=== PATIENT | female | born 1935 | race Caucasian/White ===

== ENCOUNTER → 2017-12-04 09:39 | Outpatient (CLI) | payer MEDICARE, OTHER, SELFPAY ==
--- NOTE | 2017-12-04 09:41 | ECHOD_ITS ---
Reason For Study: Dyspnea/SOB Procedure This was a 2D Doppler, Color Flow transthoracic echocardiogram. Exam performed in department. Left Ventricle Mildly dilated left ventricle. The estimated ejection fraction is 65 %. No regional wall motion abnormalities noted. Right Ventricle Mildly dilated right ventricle. Normal systolic function. Atria Normal left atrium. Normal right atrium. Normal atrial septum. Mitral Valve The mitral valve is structurally normal. No prolapse or stenosis seen. Trivial mitral valve insufficiency. Tricuspid Valve Normal tricuspid valve. Mild (1+) tricuspid valve insufficiency. Right ventricular systolic pressure estimated to be 38 mmHg. Mild pulmonary hypertension. Aortic Valve Trisinus/trileaflet aortic valve. Mild-Moderate (1-2+) aortic valve insufficiency. Pulmonic Valve Normal pulmonic valve. Great Vessels Normal aortic root. Normal arch. Normal inferior vena cava. Inferior vena cava collapse with sniff. Pericardium/Pleural No pericardial effusion. Medication Performed a rapid injection of agitated mix of 9 cc saline and 1cc air to assess for atrial septal defect. MMode/2D Measurements & Calculations LVIDd: 4.8 cm IVSd: 1.0 cm Ao root diam: 3.1 cm LVIDs: 3.0 cm LVPWd: 0.97 cm LA dimension: 3.3 cm RVDd: 4.1 cm FS: 38.3 % LAV(MOD-bp): 34.6 ml EDV(MOD-sp4): 68.2 ml SV(MOD-sp4): 49.2 ml LAV(MOD-bp) Indexed: 23.0 ml/m2 ESV(MOD-sp4): 18.9 ml LAV(MOD-sp2): 45.0 ml EF(MOD-sp4): 72.2 % LAV(MOD-sp4): 26.5 ml LA A4 area: 13.0 cm2 RA A4 area: 18.6 cm2 Doppler Measurements & Calculations MV E max jaquan: 68.8 cm/sec Lat Peak E' Jaquan: 6.3 cm/sec Med Peak E' Jaquan: 4.2 cm/sec MV A max jaquan: 78.6 cm/sec E/E' lat: 10.9 E/E' med: 16.4 MV E/A: 0.88 Ao V2 max: 166.7 cm/sec AI max jaquan: 432.7 cm/sec LV V1 max: 113.2 cm/sec Ao max P.1 mmHg AI max P.9 mmHg LV V1 max P.1 mmHg Ao V2 mean: 117.3 cm/sec AI dec slope: 189.6 cm/sec2 Ao mean P.1 mmHg AI P1/2t: 668.5 msec Ao V2 VTI: 43.0 cm PA V2 max: 92.4 cm/sec TR max jaquan: 272.7 cm/sec TR max P.8 mmHg Interpretation Summary The estimated ejection fraction is 65 %. Mildly dilated left ventricle. Trivial mitral valve insufficiency. Mild (1+) tricuspid valve insufficiency. Right ventricular systolic pressure estimated to be 38 mmHg. Mild pulmonary hypertension. Mildly dilated right ventricle. Mild-Moderate (1-2+) aortic valve insufficiency. There is no comparison study available. Ordering Physician: Luis Antonio Gunter Referring Physician: Henry Angelo Performed By: Fatimah Hamilton, IVONE, RVT
== END ==
PROVIDERS: Family Provider Family Medicine; PCP Family Medicine; Visit Provider Internal Medicine Cardiovascular Disease
DX: R07.89 Other chest pain (principal); R06.00 Dyspnea, unspecified; R06.02 Shortness of breath
CPT/HCPCS: 93306; A4216

== ENCOUNTER → 2017-12-12 13:18 | Outpatient (CLI) | payer MEDICARE, OTHER, SELFPAY ==
--- NOTE | 2017-12-12 13:20 | STE_ITS ---
Reason For Study: DYSPNEA/SOB Stress Results Protocol: Stress Echocardiogram Maximum Predicted HR: 138 bpm Target HR: 117 bpm% Maximum Pr edicted HR: 77 % DurationHeart Rate Stage (mm:ss) (bpm) BPCom ment BASELINE 65 140/70 SHAHEEN PROTOCOL- STAGE 1 3:00 90 138/68PO 98% SHAHEEN PROTOCOL- STAGE 2 2:33 10 6 140/70SOB, LEG FATIGUE PO 82% RECOVERY 71 134/78 97% Stress Duration: 5:33 mm:ss Maximum Stress HR: 106 bpm Baseline Echocardiogram Findings The estimated ejection fraction is 65 %. Stress Echo Wall motion Data Resting WMIntermediate WMStress WM Resting Wall Motion Wall Motion Stress No regional wall motion No regional wall motion abnormalities noted. abnormalities noted. EKG Data The baseline ECG demonstrates normal sinus rhythm with at rate of _ beats per minute. The patient exercised according to the regular Shaheen protocol for a total duration of 5:33. The maximum heart rate attained was 106 beats per minute. This was 76% of maximum predicted heart rate. The patient exercised into stage 2 of the Shaheen protocol. During stress, there were no ST or T wave changes noted to suggest ischemia. No clinical angina was noted. Interpretation Summary The estimated ejection fraction is 65 %. Normal submaximal treadmill echocardiogram. Negative for ischemia by EKG and echocardiographic criteria. No anginal symptoms noted. Average exercise capacity for age. Rare PACs and PVCs noted. Decreased sensitivity due to failure to reach target heart rate. Test terminated due to dyspnea and leg fatigue. Final LVEF of 75%. No complications. Ordering Physician: Luis Antonio Gunter Referring Physician: Luis Antonio Gunter Performed By: Adelita Person, RDCS, RVT
== END ==
PROVIDERS: Family Provider Family Medicine; PCP Family Medicine; Visit Provider Internal Medicine Cardiovascular Disease
DX: R07.89 Other chest pain (principal); R06.09 Other forms of dyspnea; I10 Essential (primary) hypertension; E78.5 Hyperlipidemia, unspecified
CPT/HCPCS: 93017; 93350

== ENCOUNTER → 2017-12-19 12:20 | Outpatient (CLI) | payer MEDICARE, OTHER, SELFPAY ==
--- NOTE | 2017-12-19 12:30 | RAD_ITS ---
STUDY: X-RAY CHEST REASON FOR EXAM: Female, 81 years old. Dyspnea, chest tightness. TECHNIQUE: PA and lateral views of the chest. COMPARISON: None. FINDINGS: The lungs are clear and expanded. There is no demonstrated pleural abnormality. The heart size is upper normal. Normal mediastinum and dary. Normal visualized pulmonary arteries. There is mild atherosclerotic calcification of the aortic arch and descending thoracic aorta. There are multilevel degenerative changes of the visualized spine, as well as an upper lumbar levoscoliosis. Normal visualized ribs, clavicles, and shoulders. Surgical clips of prior cholecystectomy project in the right upper quadrant of the abdomen. RAD/Chest PA and Lateral IMPRESSION: No acute cardiopulmonary disease. Electronically Signed: Rolo Grossman MD at 13:13 EDT , Service support ,
[2017-12-19 13:10] LABS: Absolute Lymphocyte Count 2.23 X10^3/ul (0.83-4.51); Basophil# 0.05 X10^3/uL; Basophil% 0.6 % (0-1); Eosinophils% 2.5 % (0-5); Hematocrit 43.1 % (37-47); Lymphocyte # 2.23 X10^3/ul (4.0); Lymphocyte % 27.3 % (19-41); Mean Corp Hgb Conc 32.5 g/gl (32-36); Mean Corpuscular Hgb 29.5 pg (27.0-32.0); Mean Corpuscular Volume 90.7 fL (81-99); Mean Platelet Vol. 11.3 fl (6.2-12.0); Monocyte# 0.62 X10^3/uL; Monocyte% 7.6 % (0-10); Neutrophil # 5.04 X10^3/uL (2.7-7.7); Neutrophil % 61.8 % (47-70); Platelet Count 239 K/mm3 (150-450); RBC Distribution Width CV 13.5 % (11.6-14.6); RBC Distribution Width SD 44.3 fl (35.1-43.9); Red Blood Count 4.75 M/mm3 (4.2-5.4); White Blood Count 8.2 K/mm3 (4.4-11.0)
[2017-12-19 13:11] LABS: POSITIVE COUNT NO; POSITIVE DIFFERENTIAL NO; POSITIVE MORPHOLOGY NO
[2017-12-19 13:18] LABS: Partial Thromboplast Time 25.4 Seconds (24.1-36.2); Prothrombin Time (Protime)PT. 13.2 SECONDS (11.7-14.9)
[2017-12-19 13:46] LABS: Anion Gap 11 (5-15); BUN 30 mg/dL (7-18); BUN/Creat Ratio 26.5 RATIO (10-20); Calcium,Total 9.7 mg/dL (8.5-10.1); Chloride 104 mmol/L (98-107); Creatinine, Serum 1.13 mg/dL (0.55-1.02); EST Glomerular Filtration Rate 49 mL/min (>60); Est Glom Filt Rate - Afr Amer 59 mL/min (>60); Glucose 97 mg/dL (74-106); Potassium 3.8 mmol/L (3.5-5.1); Sodium Level 142 mmol/L (136-145)
[2017-12-29 20:06] LABS: Base Excess 0 mmol/L (-2 to +2); Bicarbonate 24.4 mmol/L (22-26); Blood Gas Specimen Type ART; PO2 81 mmHG (75-100); SO2 96 % (95-99); Total Carbon Dioxide 26 mmol/L
[2017-12-29 20:10] LABS: Blood Gas Specimen Type VEN; VBG BASE EXCESS 3 mmol/L (-1.0-3.5); VBG Bicarbonate 27 mmol/L (22-26); VBG Oxygen Content 28 mmol/L (23-33); VBG PO2 39 mmHg (25-40); VBG SO2 74 % (50-70); VBG pH 7.43 (7.32-7.42)
[2017-12-29 20:10] LABS: Blood Gas Specimen Type VEN; VBG BASE EXCESS 1 mmol/L (-1.0-3.5); VBG Bicarbonate 25 mmol/L (22-26); VBG Oxygen Content 26 mmol/L (23-33); VBG PO2 40 mmHg (25-40); VBG SO2 75 % (50-70); VBG pCO2 39.8 mmHg (41-51); VBG pH 7.41 (7.32-7.42)
== END ==
PROVIDERS: Family Provider Family Medicine; PCP Family Medicine; Visit Provider Internal Medicine Cardiovascular Disease
DX: I27.21 Secondary pulmonary arterial hypertension (principal); I35.1 Nonrheumatic aortic (valve) insufficiency; I49.3 Ventricular premature depolarization; E03.9 Hypothyroidism, unspecified; R07.89 Other chest pain; I10 Essential (primary) hypertension; E78.5 Hyperlipidemia, unspecified; R06.09 Other forms of dyspnea; R94.39 Abnormal result of other cardiovascular function study
CPT/HCPCS: 36415; 71046; 80048; 82803; 85025; 85610; 85730

== ENCOUNTER → 2017-12-25 06:48 | Day surgery (SDC) | payer MEDICARE, OTHER, SELFPAY ==
--- NOTE | 2017-12-25 06:48 | DT_ITS ---
This patient was seen during an EMR downtime December 23, 2017 - December 30, 2017. This patient may have a combination of paper and electronic documentation or all paper documentation. All documentation is viewable within the e-chart portion of [facility] for each patient visit.
--- NOTE | 2017-12-31 12:50 | CL.D_ITS ---
Patient Name: LIZZ DE LA CRUZ Study Date: 12/25/2017 Performing: Luis Antonio Gunter MD Ht: 60 inches 152.4 cm : 1935 Wt: 121 lbs 54.885 kg Age: 81 Gender: female BSA: 1.51 PROCEDURE(S) PERFORMED [id number]/LHC/COR/LV [id number]-AO ROOT ANGIO WITH HEART CATH CLINICAL PROFILE AND INDICATIONS Indications: dyspnea on exertion Heart Failure: None Stress/Imaging Stress Echocardiogram: Yes Result: IndeterminantStress Echocardiogram: Indetermina nt Angina Classification Anginal Classification w/in 2 Weeks: No symptoms CAD Presentations: Other: dyspnea on exertion Comorbidities/Risk Factors: Hypertension Dyslipidemia CONCLUSIONS Perserved Left Ventricular systolic function with normal EDP Non obstructive coronary arteries with 60% moderately calcified mid LAD stenosis. May need rotoblati on if PFTS and renal ultrasound are unremarkable. Cardiac output - Preserved Aortic Valve Insufficiency Mild Right heart pressures - Normal RECOMMENDATIONS Renal u/s, PFTs. D/c plavix, cont baby asa. Risk factor modification ASA Indefinitely Management as per referring Whip Operator Possible need for PTCRA if pulmonary and renal w/u is unremarkable. Does not appear to require AVR a t this time. DESCRIPTION OF PROCEDURE The patient arrived to the procedure lab. The risks and benefits of the procedure as well as a full d escription of our services here and current unavailability of surgical backup were fully explained to the patient and/or their significant other prior to the catheterization. The Timeout was completed, verifying the correct patient and procedure. The patient's procedural site was prepped and draped in the usual fashion. Local anesthetic was given subcutaneously to right groin region with Lidocaine 2%. Using a modified Seldinger technique, arterial access was obtained via the right femoral artery, a 4 Fr sheath was inserted Venous access was obtained via the right femoral vein, a 7Fr sheath was insert ed. A 7Fr thermal dilution catheter was inserted and right heart pressures were recorded, it was then advanced to PA position for cardiac outputs. Thermal dilution cardiac outputs were then recorded. O2 saturations were then obtained. Simultaneous pressures were then recorded. Left Ventriculography was performed in METZ projection using a 4 Fr. Pigtail catheter. LV to AO pullback pressures were then re corded. The Thermal dilution catheter was then removed. Ascending (root) aorta selective angiography was then performed in single view. Ascending (root) aorta selective angiography was then performed in single view. Left Coronary Artery selective angiography was performed in multiple views using a 4 Fr . JL5 catheter. Right Coronary Artery selective angiography was then performed in multiple views usin g a 4 Fr. 3DRC catheter.The arterial sheath was left in to be pulled in the holding area CORONARY ANGIOGRAPHY DOMINANCE: Right Dominant LEFT HEART ASSESSMENT Left Ventricular Ejection Fraction: by LV Gram 65 % Normal LV wall motion RIGHT HEART ASSESSMENT Thermal CO: 3.56 Thermal CI: 2.36 PW: 9 PA: 30/4 16 RV: 34/0 5 RA: 12/21 1 PVR: 157 SVR: 1888 Aortic Valve Area: >3.50 Aortic Valve Index: 2.32 Aortic Valve Mean Gradient: 8.8 Right Heart pressures - normal LEFT MAIN: No significant disease noted LEFT ANTERIOR DECENDING ARTERY: PROX LAD: Moderate to severe calcification with <30% stentosis. MID LAD: 60 % Stenosis, Moderate calcification within 60% stenosis with mild tortuosity. CIRCUMFLEX ARTERY: Mild luminal irregularities less than 30% RIGHT CORONARY ARTERY: Mild luminal irregularities less than 30% RT PDA: Proximal - No significant disease noted VALVE FINDINGS: Aortic Valve Insufficiency: Grade 1 AORTIC ROOT: Atherosclerotic Calcified COMPLICATIONS No Complications PROCEDURE MEDICATIONS Oxygen: 2 L/min via nasal cannula Oxygen: 0 L/min via nasal cannula Benadryl 50 mg IV @ 12/25/2017 07:57:15 Solu-medrol 125 mg IV 12/25/2017 07:57:25 SUMMARY OF HEMODYNAMIC DATA Time AIR REST ECG 07:45:09 RA 12/21 (1) SV 08:29:42 RV 34/0, 5 08:29:59 PA 30/4 (16) PA 08:30:47 PW (9) PV 08:30:59 PW (9) 08:31:09 LV 138/-15, 11 08:35:52 LV 135/-14, 11 08:36:01 LV 135/-15, 10 08:36:33 PW (9) 08:36:33 LV 127/-10, 8 08:36:54 RV 35/0, 7 08:36:54 LV 134/-13, 9 08:37:00 RV 31/0, 5 08:37:00 LVp 143/-15, 14 08:38:43 AOp 143/54 (87) 08:38:48 AO 113/60 (85) SA 08:40:47 Valve Area (c P-P/ms Time AIR REST Aortic 3.50 8.8 mn/107 ms 08:38:43 Type SV CO (l/m) CI (l/m/ HR Time AIR REST Thermal 56.50 3.56 2.36 63 07:45:09 Label % O2 Pres/Loc Time AIR REST AO 96 PV 08:43:53 PA 75 PA 08:44:03 Signed By Luis Antonio Gunter MD On 12/25/2017 09:03:46 Luis Antonio Gunter MD
== END ==
PROVIDERS: Family Provider Family Medicine; PCP Family Medicine; Visit Provider Internal Medicine Cardiovascular Disease
DX: R94.39 Abnormal result of other cardiovascular function study (principal); I10 Essential (primary) hypertension; Z87.891 Personal history of nicotine dependence; M19.019 Primary osteoarthritis, unspecified shoulder; Z79.899 Other long term (current) drug therapy; Z79.82 Long term (current) use of aspirin; Z79.02 Long term (current) use of antithrombotics/antiplatelets; R06.09 Other forms of dyspnea; I27.21 Secondary pulmonary arterial hypertension; I35.1 Nonrheumatic aortic (valve) insufficiency
CPT/HCPCS: 93460; 93567; J7040; C1751; C1769; C1894; Q9967

== ENCOUNTER → 2018-01-14 13:22 | Outpatient (CLI) | payer MEDICARE, OTHER, SELFPAY ==
--- NOTE | 2018-01-15 05:59 | PFTCOMP_ITS ---
COMPLETE PULMONARY FUNCTION TEST INTERPRETATION Brief HPI: Patient is a 82 year old female, currently under the care of Dr. Gunter, who presents to [facility] for complete pulmonary function tests secondary to diagnosis of dyspnea on exertion. Respiratory therapist reports good effort and reproducible results. Interpretation: Forced expiration spirometry shows a mild large airways obstructive ventilatory defect with an FEV1 of 109% predicted. There is no significant bronchodilator response by ATS criteria. Spirograms are of good quality and plateau slowly, indicating slowly emptying areas of the lungs. The respiratory flow volume loop shows decreased expiratory flow rates at all lung volumes consistent with airway obstruction. Lung volumes by body plethysmography show a normal total lung capacity at 4.18 L , 107% predicted. All other lung volumes are within normal limits. Diffusion capacity by carbon monoxide is normal at 85% predicted. The airway resistance is elevated. No previous pulmonary function tests were available for review. Impression: Irreversible mild large airways obstructive ventilatory defect with preserved diffusion capacity consistent with the diagnosis of chronic bronchitis.
== END ==
PROVIDERS: Family Provider Family Medicine; PCP Family Medicine; Visit Provider Internal Medicine Cardiovascular Disease
DX: R06.09 Other forms of dyspnea (principal); I27.21 Secondary pulmonary arterial hypertension
CPT/HCPCS: 94060; 94726; 94729

== ENCOUNTER → 2018-01-16 08:51 | Outpatient (CLI) | payer MEDICARE, OTHER, SELFPAY ==
--- NOTE | 2018-01-16 08:52 | RDU_ITS ---
Reason For Study: uncontrolled HTN Right Renal Artery Left Renal Artery Right renal artery ostium 150/28.1 Left renal artery ostium 114.9/22.0 RSV/EDV. PSV/EDV. Right renal artery proximal Left renal artery proximal PSV/EDV 156/28.1 PSV/EDV. 130/25.7 . Right renal artery mid 158/34.2 Left renal artery mid 148/25.7 PSV/EDV. PSV/EDV . Right renal artery distal 115/33.0 Left renal artery distal 116/30.1 PSV/EDV. PSV/EDV. Right Renal Parenchyma Left Renal Parenchyma Upper Pole Medula 32.1/7.94 Left upper pole medulla 33.3/8.66 PSV/EDV. PSV/EDV . Right upper pole medulla EDR .25 . Left upper pole medulla EDR .26 . Right upper pole medulla R.I. .75 . Left upper pole medulla R.I. .74 . Upper Walker Cortx 32.1/8.56 PSV/EDV. UP Cortex 22.3/7.75 PSV/EDV. Right upper pole cortex EDR .27 . Left upper pole cortex EDR .35 . Right upper pole cortex R.I. .73 . Left upper pole cortex R.I. .65 . Right lower Pole medulla 46.8/11.9 Left lower Pole medulla 35.6/10.9 PSV/EDV . PSV/EDV . Right lower pole medulla EDR .25 . Left lower pole medulla EDR .31 . Right lower pole medulla R.I. .75 . Left lower pole medulla R.I. .69 . Lower Pole Cortex 40.0/8.86 Lower Pole Cortx 27.8/8.21 PSV/EDV. PSV/EDV. Left lower pole cortex EDR .3 . Right lower pole cortex EDR .22 . Left lower pole cortex R.I. .70 . Right lower pole cortex R.I. .78 . Left Renal Hilar Right Renal Hilar Left hilar acceleration time 51 Right hilar acceleration time 59 m/sec. m/sec. LT Hilar avg 45.6/11.4 PSV/EDV . Right Hilar avg 54.7/14.1 PSV/EDV. Left Renal Dimensions Right Renal Dimensions Left kidney size 10.4 cm . Right kidney size 10.5 cm . Left cortical dimension 1.11 cm . Right cortical dimension 1.2 cm . Hypoechoic area on the lower pole measuring 1.9 x 2.05 cm. Area appears to be nonvascular. Aorta Proximal abdominal aorta 1.6 x 1.49 cm . Proximal abdominal aorta peak systolic velocity is 103 cm/sec . Distal abdominal aorta 1.31 x 1.44 cm . Distal abdominal aorta peak systolic velocity is 86.8 cm/sec . Interpretation Summary 0-59% stensosis bilateral renal arteries Maintained renal length 10.5cm right and 10.4cm left 1.9 x 2.05 probable cystic lesion lower pole right kidney Mild atherosclerotic disease abdominal aorta with minimally increased velocities making renal artery to aortic ratio no reliable Maximal aortic diameter 1.6 x 1.49cm with no aneurysmal change. Ordering Physician: Luis Antonio Gunter Performed By: Collins Venegas RVT
== END ==
PROVIDERS: Family Provider Family Medicine; PCP Family Medicine; Visit Provider Internal Medicine Cardiovascular Disease
DX: I10 Essential (primary) hypertension (principal); I27.21 Secondary pulmonary arterial hypertension; I35.1 Nonrheumatic aortic (valve) insufficiency; I49.3 Ventricular premature depolarization; R07.89 Other chest pain; R06.09 Other forms of dyspnea; E78.5 Hyperlipidemia, unspecified; E03.9 Hypothyroidism, unspecified
CPT/HCPCS: 93975

== ENCOUNTER → 2018-02-06 06:44 | Outpatient (CLI) | payer MEDICARE, OTHER, SELFPAY ==
--- NOTE | 2018-02-06 06:48 | CT_ITS ---
STUDY: CT CHEST WITHOUT CONTRAST REASON FOR EXAM: Female, 82 years old. Wheezing RADIATION DOSAGE (If Supplied By Facility): CTDIvol = ( 6.24 ) mGy, DLP = ( 202.76 ) mGycm TECHNIQUE: Transaxial imaging was performed without the administration of intravenous contrast material. Coronal and sagittal reformatted images were created. Individualized dose optimization techniques were used for this CT. COMPARISON: None FINDINGS: There are no pulmonary infiltrates or pleural effusions. There is a 5 mm nodule in the left lower lobe (image 76 series 4). There is a 4 mm nodule in the right lower lobe (image 79 series 4). There is no pneumothorax. The heart and pericardium are within normal limits. There are coronary artery calcifications noted. There is no thoracic lymphadenopathy. There is no evidence of thoracic aortic aneurysm. Images through the upper abdomen demonstrate no significant abnormality. There are no destructive osseous lesions. CT/Chest without Contrast IMPRESSION: 5 mm nodule in the left lower lobe. 4 mm nodule in the right lower lobe. A follow-up CT in 6 months is recommended. Otherwise, clear lungs. Coronary artery disease. Electronically Signed: Germán Lainez, at 17:36 EDT Tel , Service support ,
[2018-02-06 07:30] VITALS: PULSE 60; PULSE 62; PULSE 70; PULSE 74; PULSE 75; PULSE 76; PULSE 77; O2SAT 90; O2SAT 92; O2SAT 94; O2SAT 98
--- NOTE | 2018-02-07 07:55 | WT_ITS ---
PSN 6 Minute Walk Test - 6 Minute Walk Test 6 Minute Walk Test: 6 Minute Walk Test PSN:6-Minute Walk Test Start: 02/06/18 11: 21 Freq: Status: Active Protocol: [id number].[id number] Document 02/06/18 07:30 [facility] [place]Rec: 02/06/18 11:31 [facility] [id number] 6 Minute Walk Test Date Performed 02/06/18 Time Performed 07:30 Height 5 ft Weight: 121 lb Weight in Pounds 121.[address]: Maicol Woody Assistive device used: None Pre-test Oxygen Delivery Method Room Air Pulse Ox (%) 98 Pulse Rate (60-100 beats/min) 60 Dyspnea Sofia Scale (0-10) 0 Exertion Sofia Scale (6-20) 6 1st minute Oxygen Delivery Method Room Air Pulse Ox (%) 98 Pulse Rate (60-100 beats/min) 70 Number of Rests Taken 0 2nd minute Oxygen Delivery Method Room Air Pulse Ox (%) 98 Pulse Rate (60-100 beats/min) 74 Number of Rests Taken 0 3rd minute Oxygen Delivery Method Room Air Pulse Ox (%) 92 Pulse Rate (60-100 beats/min) 75 Number of Rests Taken 0 4th minute Oxygen Delivery Method Room Air Pulse Ox (%) 92 Pulse Rate (60-100 beats/min) 77 Number of Rests Taken 0 5th minute Oxygen Delivery Method Room Air Pulse Ox (%) 94 Pulse Rate (60-100 beats/min) 76 Number of Rests Taken 0 6th minute Oxygen Delivery Method Room Air Pulse Ox (%) 90 Pulse Rate (60-100 beats/min) 74 Number of Rests Taken 0 Post-test Oxygen Delivery Method Room Air Pulse Ox (%) 98 Pulse Rate (60-100 beats/min) 62 Dyspnea Sofia Scale (0-10) 0.5 Exertion Sofia Scale (6-20) 11 Number of Rests Taken 0 Full Laps Walked 20 Partial Lap, Number of Tiles Walked 17 Total Distance Walked (ft) 1197 - Interpretation Interpretation: The patient ambulated 1197 feet over the course of 6 minutes beginning on room air without assistive devices or breaks. Pretesting oxygen saturation was noted to be 98% on room air. With ambulation, the zari oxygen saturation was 90%. This represents a significant exertional oxygen desaturation. - Recommendations Recommendations: There is no indication for the use of supplemental oxygen at this time. However , close interval follow-up is recommended given the degree of oxygen desaturation noted during this study.
== END ==
PROVIDERS: Family Provider Family Medicine; PCP Family Medicine; Visit Provider Internal Medicine Critical Care Medicine
DX: R06.09 Other forms of dyspnea (principal); I27.21 Secondary pulmonary arterial hypertension
CPT/HCPCS: 71250; 94618

== ENCOUNTER → 2018-02-18 07:45 | Outpatient (CLI) | payer MEDICARE, OTHER, SELFPAY ==
[2018-02-18 08:35] LABS: AST(SGOT) 26 U/L (15-37); Alanine Aminotransfer ALT/SGPT 26 U/L (13-56); Alkaline Phosphatase 70 U/L (45-117); Bilirubin, Direct 0.21 mg/dL (0.00-0.30); Cholesterol 149 mg/dL (200); Globulin 3.3 g/dL (2.2-4.2); High Density Lipoprotein 45 mg/dL; Protein, Total 7.3 g/dL (6.4-8.2); Triglycerides 101 mg/dL; Very Low Density Lipoprotein 20 mg/dL (5-40)
== END ==
PROVIDERS: Family Provider Family Medicine; PCP Family Medicine; Visit Provider Internal Medicine Cardiovascular Disease
DX: R07.89 Other chest pain (principal); E78.5 Hyperlipidemia, unspecified
CPT/HCPCS: 36415; 80061; 80076

== ENCOUNTER → 2018-10-22 12:47 | Outpatient (CLI) | payer MEDICARE, OTHER, SELFPAY ==
--- NOTE | 2018-10-22 14:32 | PFTCOMP ---
COMPLETE PULMONARY FUNCTION TEST INTERPRETATION Brief HPI: Patient is an 82 year old female, currently under the care of myself, who presents to [facility] for complete pulmonary function tests secondary to diagnosis of asthma. Respiratory therapist reports good effort and reproducible results. Interpretation: Forced expiration spirometry shows a mild large airways obstructive ventilatory defect with an FEV1 of 112% predicted. There is no significant bronchodilator response by strict ATS criteria. Spirograms are of good quality and plateau slowly, indicating slowly emptying areas of the lungs. The respiratory flow volume loop shows decreased expiratory flow rates at high lung volumes consistent with small airways obstruction. Lung volumes by body plethysmography show a normal total lung capacity at 4.35 L, 117% predicted. All other lung volumes are within normal limits. Diffusion capacity by carbon monoxide is normal at 105% predicted. The airway resistance is elevated. Compared to previous pulmonary function tests from 01/14/2018, there has been a significant improvement in DLCO by 22%. Impression: Irreversible mild large airways obstructive ventilatory defect with significant improvement in DLCO compared to previous testing.
== END ==
PROVIDERS: Family Provider Family Medicine; PCP Family Medicine; Referring Provider Internal Medicine Critical Care Medicine; Visit Provider Internal Medicine Critical Care Medicine
DX: J45.20 Mild intermittent asthma, uncomplicated (principal); I27.21 Secondary pulmonary arterial hypertension
CPT/HCPCS: 94060; 94726; 94729

== ENCOUNTER → 2019-01-02 07:21 | Outpatient (CLI) | payer MEDICARE, OTHER, SELFPAY ==
[2018-11-11 08:04] VITALS: BMI 24.2
--- NOTE | 2019-01-02 07:22 | CT_ITS ---
HISTORY: Pulmonary nodule follow up, asthma, hypertension, former smoker. TECHNIQUE: Helically acquired images were obtained of the chest. A radiation dose optimization technique was used for this scan. IV Contrast dosage and agent: None. COMPARISON: February 06, 2018 FINDINGS: # of images incl. paperwork: [id number] LUNGS AND LARGE AIRWAYS: Within the right lower lobe, series 4 image 81,There is a 4 mm pulmonary nodule. This corresponds to the nodule on image 79 on the previous study, and has not changed. On series 4 image 77 there is the left lower lobe pulmonary nodule. It has sharp margins. On today's study it measures 6 x 3 mm. Previously the nodule was on 2 consecutive cuts to give it the 5 mm length. On today's study, due to different slice acquisition and position of the nodule relative to each slice, it is likely the same size, but measures larger due to differences in acquisition, rather than due to growth. Series 2 image 58 demonstrates a benign calcified granuloma. This is also present on the previous study, series 2 image 56, and has not changed. PLEURA: Unremarkable. No pleural effusion or thickening. BONES: Kyphosis and degenerative disc disease is the same HEART AND PERICARDIUM: Coronary artery atherosclerotic disease. Mild cardiomegaly. VESSELS: Elongation of the thoracic aorta without aneurysm MEDIASTINUM AND MERCEDEZ: Some mediastinal lymph nodes remain SOFT TISSUES: Within the posterior aspect of the right lobe of the thyroid gland there is a 7 mm area of decreased density. This is similar to the previous study and unchanged. This is likely benign disease. No axillary adenopathy. Some coarse dystrophic calcifications are present within the medial aspect of the right breast glandular tissue. Glandular tissue is prominent and may be related to hormone replacement therapy. UPPER ABDOMEN: Cholecystectomy. Hypodense mass exophytic to the superior pole of the left kidney likely represents a benign cyst It was unchanged since previous study. CT/Chest without Contrast IMPRESSION: Right lower and left lower lobe pulmonary nodules. Accounting for differences in slice acquisition, cursor placement, and imaging characteristics, these are unchanged. Absence of change in 11 months and the small size of these lesions is consistent with benignity. According to guidelines by a chest imaging Society, the Fleischner Society, these lesions do not need further workup, and can be considered benign. 7 mm hypodense lesion in the posterior aspect of the right lobe of the thyroid gland is likely benign. Benign calcified granuloma within the left lower lobe. Individualized dose optimization techniques were used for this CT. at 2233 Reported and signed by: Rd Felix MD Electronically Signed: Rd Felix MD at 22:33 EDT Tel , Service support ,
== END ==
PROVIDERS: Family Provider Family Medicine; PCP Family Medicine; Referring Provider Internal Medicine Critical Care Medicine; Visit Provider Internal Medicine Critical Care Medicine
DX: R91.1 Solitary pulmonary nodule (principal)
CPT/HCPCS: 71250

== ENCOUNTER → 2020-04-19 09:18 | Outpatient (CLI) | payer MEDICARE, OTHER, SELFPAY ==
[2020-03-15 10:17] VITALS: BMI 23.8
--- NOTE | 2020-04-19 14:15 | PFTCOMP_ITS ---
COMPLETE PULMONARY FUNCTION TEST INTERPRETATION Brief HPI: Patient is an 84 year old female, currently under the care of myself, who presents to [facility] for complete pulmonary function tests secondary to diagnosis of secondary PAH. Respiratory therapist reports good effort and reproducible results. Interpretation: Forced expiration spirometry shows a mild large airways obstructive ventilatory defect with an FEV1 of 127% predicted. There is a significant bronchodilator r esponse FEV1 by strict ATS criteria. Spirograms are of good quality and plateau slowly, indicating slowly emptying areas of the lungs. The respiratory flow volume loop shows decreased expiratory flow rates at high lung volumes consistent with small airways obstruction. Lung volumes by body plethysmography show an elevated total lung capacity at 4.72 L, 128% predicted. All other lung volumes are increased symmetrically. Diffusion capacity by carbon monoxide is normal at 105% predicted. The airway resistance is dated. Compared to previous pulmonary function tests from 10/22/2018, there has been no significant change. Impression: Fully reversible mild large airways obstructive ventilatory defect with no significant change compared to previous.
== END ==
PROVIDERS: PCP Family Medicine; Referring Provider Internal Medicine Critical Care Medicine; Visit Provider Internal Medicine Critical Care Medicine
DX: I27.21 Secondary pulmonary arterial hypertension (principal); J45.20 Mild intermittent asthma, uncomplicated
CPT/HCPCS: 94060; 94726; 94729